=== PATIENT | female | born 1960 | race Two or more races ===

== ENCOUNTER 2017-01-28 10:42 | Emergency (ER) | payer OTHER ==
[2017-01-28 10:54] VITALS: BP 138/94; PULSE 60; TEMP 97.6; BMI 24.9
--- NOTE | 2017-01-28 11:00 | PDOC ---
History of Present Illness - General Chief Complaint: Pain Stated Complaint: Weakness, abd pain Past History - Past Medical History Allergies/Adverse Reactions: Allergies Allergy/AdvReac Type Severity Reaction Status Date / Time No Known Drug Allergies Allergy Verified 01/28/17 10:54 Home Medications: Ambulatory Orders Clonazepam [Klonopin] 1 mg PO BID 02/25/12 Zolpidem Tartrate [Ambien] 10 mg PO HS 02/25/12 Albuterol Sulfate Inhaler - [Ventolin HFA Inhaler -] 1 - 2 inh PO QID PRN Dicyclomine HCl 20 mg PO QID 04/09/14 Meclizine HCl [Antivert -] 12.5 mg PO BID 04/09/14 Montelukast Na [Singulair -] 10 mg PO HS 04/09/14 Pantoprazole Sodium [Protonix] 40 mg PO DAILY 04/09/14 Tiotropium [place] [Spiriva] 1 inh PO DAILY 04/09/14 Oxycodone HCl/Acetaminophen [Percocet 10-325 mg Tablet] 1 tab PO Q4H PRN #0 tablet 05/30/14 Famotidine [Pepcid] 20 mg PO BID #14 tablet 07/21/15 Simethicone 80 mg PO Q8H #12 tab.chew 07/21/15 Naproxen Sodium 550 mg PO BID #20 tablet 04/12/16 Anemia: No Asthma: Yes (NO RECENT ATTACK) Cancer: No Cardiac Disorders: Yes (HEART MURMUR) CVA: No COPD: Yes CHF: No Dementia: No Diabetes: No GI Disorders: Yes (gerd,gastroduodenitis,gastritis,indiigestion,diaphragmatic hernia) Disorders: No HTN: No Hypercholesterolemia: No Liver Disease: No Seizures: No Thyroid Disease: No - Surgical History Abdominal Surgery: No Appendectomy: No Cardiac Surgery: No Cholecystectomy: No Lung Surgery: No Neurologic Surgery: No Orthopedic Surgery: Yes (ROTATOR CUFF,R SHOULDER SUREGRY) - Psycho/Social/Smoking Cessation Hx Anxiety: Yes Suicidal Ideation: No Smoking Status: Yes Smoking History: Former smoker Have you smoked in the past 12 months: No Number of Cigarettes Smoked Daily: 0 If you are a former smoker, when did you quit?: 2013 Information on smoking cessation initiated: No 'Breaking Loose' booklet given: 05/24/14 Hx Alcohol Use: No Drug/Substance Use Hx: No Substance Use Type: None Hx Substance Use Treatment: No *Physical Exam - Vital Signs Last Vital Signs Temp Pulse Resp BP Pulse Ox 97.6 F 60 18 138/94 97 01/28/17 10:50 01/28/17 10:50 01/28/17 10:50 01/28/17 10:50 01/28/17 10:50 *DC/Admit/Observation/Transfer - Attestations Physician Attestion: 01/28/17 10:59 I, Dr. Emir Booker, attest that this document has been prepared under my direction and personally reviewed by me in its entirety. I further attest, that it accurately reflects all work, treatment, procedures and medical decision -making performed by me.
[2017-01-28] MEDS ORDERED: SODIUM CHLORIDE 1,000 ML IV STA (12:03)
[2017-01-28] MEDS ORDERED: ONDANSETRON 4 MG/2 ML VIAL IVPUSH ONE (12:03)
[2017-01-28] MEDS ORDERED: PANTOPRAZOLE SODIUM 40 MG in SODIUM CHLORIDE 100 ML IVPB ONE (12:03)
[2017-01-28] MEDS ORDERED: KETOROLAC TROMETHAMINE 30 MG/1 ML VIAL IVPUSH ONE (12:04)
[2017-01-28] MEDS ORDERED: KETOROLAC TROMETHAMINE 30 MG/1 ML VIAL ONE (12:13)
[2017-01-28] MEDS ORDERED: ONDANSETRON 4 MG/2 ML VIAL ONE (12:13)
[2017-01-28] MEDS ORDERED: PANTOPRAZOLE SODIUM 40 MG VIAL ONE (12:14)
[2017-01-28 12:22] LABS: BASOPHIL 0.7 % (0-2.0); EOSINOPHIL 0.5 % (0-4.5); MCH 31.9 pg (25.7-33.7); MCHC 33.5 g/dl (32.0-36.0); MEAN CELL VOLUME 95.3 fl (80-96); MEAN PLT VOLUME 7.8 fl (7.5-11.1); PLATELET COUNT 296 K/MM3 (134-434); RDW 13.2 % (11.6-15.6)
--- NOTE | 2017-01-28 12:31 | PDOC ---
History of Present Illness - General Chief Complaint: Pain Stated Complaint: Weakness, abd pain Time Seen by Provider: 01/28/17 10:59 History Source: Patient Exam Limitations: No Limitations - History of Present Illness Initial Comments: 01/28/17 12:26 56-year-old female presents to the ED with complaints of epigastric burning, nausea, vomiting since yesterday. Patient states was seen by a nearby hospital and was told she had diverticulitis and gastritis and was given antibiotics including Pepcid. Patient denies fever, diarrhea today although she had 1 episode yesterday and a few daily for the past week. Pt denies drug or alcohol use. Timing/Duration: reports: constant Quality: reports: moderate, burning, cramping Abdominal Pain Onset Location: reports: epigastric Pain Radiation: reports: periumbilical Activities at Onset: reports: none Aggravating Factors: improves with: None Alleviating Factors: improves with: None Past History - Past Medical History Allergies/Adverse Reactions: Allergies Allergy/AdvReac Type Severity Reaction Status Date / Time No Known Drug Allergies Allergy Verified 01/28/17 10:54 Home Medications: Ambulatory Orders Clonazepam [Klonopin] 1 mg PO BID 02/25/12 Zolpidem Tartrate [Ambien] 10 mg PO HS 02/25/12 Albuterol Sulfate Inhaler - [Ventolin HFA Inhaler -] 1 - 2 inh PO QID PRN Dicyclomine HCl 20 mg PO QID 04/09/14 Meclizine HCl [Antivert -] 12.5 mg PO BID 04/09/14 Montelukast Na [Singulair -] 10 mg PO HS 04/09/14 Pantoprazole Sodium [Protonix] 40 mg PO DAILY 04/09/14 Tiotropium [place] [Spiriva] 1 inh PO DAILY 04/09/14 Oxycodone HCl/Acetaminophen [Percocet 10-325 mg Tablet] 1 tab PO Q4H PRN #0 tablet 05/30/14 Famotidine [Pepcid] 20 mg PO BID #14 tablet 07/21/15 Simethicone 80 mg PO Q8H #12 tab.chew 07/21/15 Naproxen Sodium 550 mg PO BID #20 tablet 04/12/16 Anemia: No Asthma: Yes (NO RECENT ATTACK) Cancer: No Cardiac Disorders: Yes (HEART MURMUR) CVA: No COPD: Yes CHF: No Dementia: No Diabetes: No GI Disorders: Yes (gerd,gastroduodenitis,gastritis,indiigestion,diaphragmatic hernia) Disorders: No HTN: No Hypercholesterolemia: No Liver Disease: No Seizures: No Thyroid Disease: No - Surgical History Abdominal Surgery: No Appendectomy: No Cardiac Surgery: No Cholecystectomy: No Lung Surgery: No Neurologic Surgery: No Orthopedic Surgery: Yes (ROTATOR CUFF,R SHOULDER SUREGRY) - Psycho/Social/Smoking Cessation Hx Anxiety: Yes Suicidal Ideation: No Smoking Status: Yes Smoking History: Former smoker Have you smoked in the past 12 months: No Number of Cigarettes Smoked Daily: 0 If you are a former smoker, when did you quit?: 2012 Information on smoking cessation initiated: No 'Breaking Loose' booklet given: 05/24/14 Hx Alcohol Use: No Drug/Substance Use Hx: No Substance Use Type: None Hx Substance Use Treatment: No Patient Lives Alone: No Abd/GI Specific PMHX - Complaint Specific PMHX Diverticulitis: Yes GERD: Yes Review of Systems - Review of Systems Able to Perform ROS?: Yes Constitutional: No: Symptoms Reported HEENTM: No: Symptoms Reported Respiratory: No: Symptoms reported Cardiac (ROS): No: Symptoms Reported ABD/GI: Yes: Nausea, Vomiting, Indigestion, Abdominal cramping : No: Symptoms Reported Musculoskeletal: No: Symptoms Reported Integumentary: No: Symptoms Reported Neurological: No: Symptoms reported Endocrine: No: Symptoms Reported Hematologic/Lymphatic: No: Symptoms Reported *Physical Exam - Vital Signs Last Vital Signs Temp Pulse Resp BP Pulse Ox 97.6 F 60 18 138/94 97 01/28/17 10:50 01/28/17 10:50 01/28/17 10:50 01/28/17 10:50 01/28/17 10:50 - Physical Exam General Appearance: Yes: Nourished, Appropriately Dressed. No: Apparent Distress HEENT: negative: Pale Conjunctivae Respiratory/Chest: positive: Lungs Clear, Normal Breath Sounds. negative: Respiratory Distress, Accessory Muscle Use Cardiovascular: positive: Regular Rhythm, Regular Rate. negative: Murmur Gastrointestinal/Abdominal: positive: Soft, Tenderness (epigastric/ upper periumbilical with mild left lower quadrant tenderness on exam) Musculoskeletal: negative: CVA Tenderness Extremity: positive: Normal Capillary Refill. negative: Pedal Edema Integumentary: positive: Normal Color, Warm, Moist Neurologic: positive: Motor Strength 5/5 (ambulatory). negative: Normal Mood/ Affect (anxious) ED Treatment Course - LABORATORY CBC & Chemistry Diagram: 01/28/17 12:06 01/28/17 12:06 - Medications Given in the ED: ED Medications Discontinued Medications Generic Name Dose Route Start Last Admin Trade Name Guidoq PRN Reason Stop Dose Admin Ketorolac Tromethamine 30 mg 01/28/17 12:04 01/28/17 12:20 Toradol Injection - IVPUSH 01/28/17 12:05 30 mg ONCE ONE Administration Ondansetron HCl 4 mg 01/28/17 12:03 01/28/17 12:20 Zofran Injection IVPUSH 01/28/17 12:04 4 mg ONCE ONE Administration Medical Decision Making - Medical Decision Making 01/28/17 12:33 Patient with recent diagnosis of diverticulitis and gastritis. Patient with history of GERD but does not take medication and was given Pepcid along with Cipro and Flagyl upon discharge 2 days ago but states medication is not helping her epigastric pain. Patient does state diarrhea has decreased and denies fever presently. Patient ordered for labs, antiemetics, IV fluids and pain control. 01/28/17 14:41 Laboratory Tests 01/28/17 01/28/17 12:06 12:06 WBC 12.0 H Hgb 13.5 Hct 40.3 Plt Count 296 Monocytes % 6.0 Sodium 143 Potassium 4.1 Chloride 107 Carbon Dioxide 27 Anion Gap 9 BUN 9 D Creatinine 0.9 D Creat Clearance w eGFR > 60 Random Glucose 82 Calcium 8.6 Magnesium 1.9 Total Bilirubin 1.2 H AST 77 H D Albumin 3.8 Patient states feeling much better and tolerated a lunch tray. Patient will be discharged home with Protonix and told not to take the Pepcid Motrin or Percocet that was prescribed for her knee and acid reflux. Patient is to continue her Cipro and Flagyl and follow-up with Dr. Funes *DC/Admit/Observation/Transfer Diagnosis at time of Disposition: Gastritis Qualifiers: Gastritis type: unspecified gastritis Chronicity: acute Gastritis bleeding: without bleeding Qualified Code(s): K29.00 - Acute gastritis without bleeding Gastroesophageal reflux disease Qualifiers: Esophagitis presence: without esophagitis Qualified Code(s): K21.9 - Gastro- esophageal reflux disease without esophagitis - Discharge Dispostion Disposition: HOME Condition at time of disposition: Improved - Referrals Referrals: Emir Funes MD [Staff Physician] - - Patient Instructions Printed Discharge Instructions: DI for Gastroesophageal Reflux Disease (GERD) Additional Instructions: Please take Protonix as prescribed starting tomorrow. Please continue Flagyl and Cipro as prescribed. Please follow up with your hydro mechanic Dr. Funes and return to ED if symptoms worsen
[2017-01-28 13:00] LABS: ALBUMIN 3.8 g/dl (3.4-5.0); ANION GAP 9 (8-16); CALCIUM 8.6 mg/dL (8.5-10.1); CO2 27 mmol/L (21-32); GLUCOSE,RANDOM 82 mg/dL (74-106)
[2017-01-28 13:04] LABS: ALK PHOS 96 U/L (45-117); BILIRUBIN,TOTAL 1.2 mg/dL (0.2-1.0); CREATININE 0.9 mg/dL (0.55-1.02); SGPT/ALT 54 U/L (12-78); TOT PROT 7.4 g/dl (6.4-8.2)
[2017-01-28 13:06] LABS: MAGNESIUM 1.9 mg/dL (1.8-2.4); SGOT/AST 77 U/L (15-37)
== END 2017-01-28 14:51 | disposition home or self-care (01) ==
LOC: JER 10:42
PROC: 3E033GC Introduction of Other Therapeutic Substance into Peripheral Vein, Percutaneous Approach (ICD-10-PCS; principal; 2017-01-28)
PROC: 3E0333Z Introduction of Anti-inflammatory into Peripheral Vein, Percutaneous Approach (ICD-10-PCS; 2017-01-28)
PROC: 3E033GC Introduction of Other Therapeutic Substance into Peripheral Vein, Percutaneous Approach (ICD-10-PCS; 2017-01-28)
DX: K29.60 Other gastritis without bleeding (principal); K21.9 Gastro-esophageal reflux disease without esophagitis; J45.909 Unspecified asthma, uncomplicated; J44.9 Chronic obstructive pulmonary disease, unspecified; R01.1 Cardiac murmur, unspecified
CPT/HCPCS: 36415; 80053; 83735; 85025; 99282-25

== ENCOUNTER 2017-04-20 08:29 | Day surgery (SDC) | payer OTHER ==
[2017-04-20 09:15] VITALS: BMI 24.0
[2017-04-20] MEDS ORDERED: LIDOCAINE HCL/PF 2% SDV 5ML VIAL ONE (09:19)
[2017-04-20] MEDS ORDERED: PROPOFOL 20 ML ONE (09:19)
[2017-04-20 10:07] VITALS: TEMP 97.5
[2017-04-20 11:34] VITALS: BP 136/76; PULSE 68
--- NOTE | 2017-04-21 16:20 | PATH ---
Surgical Pathology Report Patient Name: MARTHA LOREDO [facility]. Rec. #: [id number] /Age/Gender: 1960 (Age: 56) / F Account: [id number] Location: U-ENDOSCOPY Taken: 04/20/2017 Received: 04/20/2017 Reported: 04/21/2017 Physicians: Emir Funes M.D. Specimen(s) Received A: BX GASTRIC B: BX ESOPHAGUS Clinical History Abdominal pain Hiatal hernia, gastritis Final Diagnosis A. STOMACH, BIOPSY: GASTRIC FUNDIC MUCOSA WITH NO PATHOLOGIC CHANGES. IMMUNOSTAIN FOR H. PYLORI IS NEGATIVE. B. ESOPHAGUS, BIOPSY: SQUAMOUS EPITHELIUM WITH PAPILLOMATOSIS SUGGESTIVE OF REFLUX ESOPHAGITIS. NO INTESTINAL METAPLASIA IDENTIFIED (NO ALVES'S IDENTIFIED). NO EOSINOPHILIC ESOPHAGITIS IDENTIFIED. Electronically Signed Johnie Bhatt M.D. Gross Description A. Received in formalin, labeled "gastric biopsy" are 2 mejias, irregular portions of soft tissue measuring 0.2 and 0.5 cm. in greatest dimension. The specimens are submitted in toto in one cassette. B. Received in formalin, labeled "biopsy esophagus" is a mejias, irregular portion of soft tissue measuring 0.3 cm. in greatest dimension. The specimen is submitted in toto in one cassette. 04/20/201704/20/2017
== END 2017-04-20 11:20 | disposition home or self-care (01) ==
LOC: JASU-ENDO 08:29
PROVIDERS: ATTEND Internal Medicine Gastroenterology
PROC: 0DB68ZX Excision of Stomach, Via Natural or Artificial Opening Endoscopic, Diagnostic (ICD-10-PCS; 2017-04-20)
PROC: 0DB58ZX Excision of Esophagus, Via Natural or Artificial Opening Endoscopic, Diagnostic (ICD-10-PCS; principal; 2017-04-20 09:25)
DX: K29.60 Other gastritis without bleeding (principal); K44.9 Diaphragmatic hernia without obstruction or gangrene
CPT/HCPCS: 88305-TC; 88342-TC

== ENCOUNTER 2017-11-02 22:34 | Emergency (ER) | payer OTHER ==
[2017-11-02 22:48] VITALS: BP 122/84; PULSE 94; BMI 23.0
[2017-11-02 22:50] VITALS: TEMP 97.7
--- NOTE | 2017-11-02 22:50 | PDOC ---
History of Present Illness - General History Source: Patient Exam Limitations: No Limitations - History of Present Illness Initial Comments: 11/03/17 00:17 Patient is a 57 year old female with a significant past medical history of asthma, acid reflux, Heart Murmur, COPD, gerd,gastroduodenitis,gastritis, indigestion,diaphragmatic hernia, Anxiety, Esophagitis, Cervical and Lumbar Radiculopathy, who presents to the ED with complaints of SOB that began 4 days ago. Patient reports experiencing SOB while at home suddenly, showing no signs of subsiding. She reports experiencing chronic cough since October 30 and chest pain secondary to cough. Patient states she was in last in the hospital 4 months ago and was diagnosed with diverticulosis. Denies nausea, vomiting. Denies fevers, chills. Denies contact with sick individuals, out of state travel. Denies any other symptoms. Allergies: None Social history: Former smoker (Last 4 years ago, started at 18). No alcohol. No illicit drugs. Surgical history: Gallbladder removal. C Section. PMD: Dr. Brenda Cuello <Adalid Gaspar - Last Filed: 11/03/17 00:17> <Delmy Mac - Last Filed: 11/03/17 01:24> - General Chief Complaint: Respiratory Stated Complaint: SOB Time Seen by Provider: 11/02/17 22:43 Past History <Adalid Gaspar - Last Filed: 11/03/17 00:17> - Past Medical History Anemia: No Asthma: Yes (NO RECENT ATTACK) Cancer: No Cardiac Disorders: Yes (HEART MURMUR) CVA: No COPD: Yes CHF: No Dementia: No Diabetes: No GI Disorders: Yes (gerd,gastroduodenitis,gastritis,indiigestion,diaphragmatic hernia) Disorders: No HTN: No Hypercholesterolemia: No Liver Disease: No Seizures: No Thyroid Disease: No - Surgical History Abdominal Surgery: No Appendectomy: No Cardiac Surgery: No Cholecystectomy: No Lung Surgery: No Neurologic Surgery: No Orthopedic Surgery: Yes (ROTATOR CUFF,R SHOULDER SUREGRY) - Suicide/Smoking/Psychosocial Hx Smoking Status: Yes Smoking History: Never smoked Have you smoked in the past 12 months: No Number of Cigarettes Smoked Daily: 0 If you are a former smoker, when did you quit?: 2013 Information on smoking cessation initiated: No 'Breaking Loose' booklet given: 05/24/14 Hx Alcohol Use: No Drug/Substance Use Hx: No Substance Use Type: None Hx Substance Use Treatment: No <BubbaDelmy - Last Filed: 11/03/17 01:24> - Past Medical History Allergies/Adverse Reactions: Allergies Allergy/AdvReac Type Severity Reaction Status Date / Time No Known Drug Allergies Allergy Verified 11/02/17 22:43 Home Medications: Ambulatory Orders Clonazepam [Klonopin] 1 mg PO BID 02/25/12 Albuterol Sulfate Inhaler - [Ventolin HFA Inhaler -] 1 - 2 inh PO QID PRN Montelukast Na [Singulair -] 10 mg PO HS 04/09/14 Tiotropium [place] [Spiriva] 1 inh PO DAILY 04/09/14 Oxycodone HCl/Acetaminophen [Percocet 10-325 mg Tablet] 1 tab PO Q4H PRN #0 tablet 05/30/14 Butalbital/Acetaminophen [Butalbital-Acetaminophn 50-325] 1 each PO DAILY Cyclobenzaprine HCl [Flexeril 10 mg] 10 mg PO BID PRN 04/20/17 Diclofenac Sodium 75 mg PO DAILY 04/20/17 Escitalopram Oxalate [Lexapro -] 20 mg PO DAILY 04/20/17 Ibuprofen 800 mg PO DAILY PRN 04/20/17 Review of Systems - Review of Systems Able to Perform ROS?: Yes Comments:: 11/03/17 00:17 CONSTITUTIONAL: Absent: fever, chills, diaphoresis, generalized weakness, malaise, loss of appetite HEENT: Absent: rhinorrhea, nasal congestion, throat pain, throat swelling, difficulty swallowing, mouth swelling, ear pain, eye pain, visual Changes CARDIOVASCULAR: Absent: chest pain, syncope, palpitations, irregular heart rate, lightheadedness , peripheral edema RESPIRATORY: Absent: cough, shortness of breath, dyspnea with exertion, orthopnea, wheezing, stridor, hemoptysis GASTROINTESTINAL: Absent: abdominal pain, abdominal distension, nausea, vomiting, diarrhea, constipation, melena, hematochezia GENITOURINARY: Absent: dysuria, frequency, urgency, hesitancy, hematuria, flank pain, genital pain MUSCULOSKELETAL: Absent: myalgia, arthralgia, joint swelling SKIN: Absent: rash, itching, pallor HEMATOLOGIC/IMMUNOLOGIC: Absent: easy bleeding, easy bruising, lymphadenopathy, frequent infections ENDOCRINE: Absent: unexplained weight gain, unexplained weight loss, heat intolerance, cold intolerance NEUROLOGIC: Absent: headache, focal weakness or paresthesias, dizziness, unsteady gait, seizure, mental status changes, bladder or bowel incontinence PSYCHIATRIC: Absent: anxiety, depression, suicidal or homicidal ideation, hallucinations. All Other Systems: Reviewed and Negative <Adalid Gaspar - Last Filed: 11/03/17 00:17> *Physical Exam - Vital Signs Last Vital Signs Temp Pulse Resp BP Pulse Ox 97.7 F 94 H 16 122/84 95 11/02/17 22:49 11/02/17 22:44 11/02/17 22:44 11/02/17 22:44 11/02/17 22:44 - Physical Exam Comments: 11/03/17 00:17 GENERAL: +currently hyperventilating in ED. Well developed, well nourished. Awake and alert. No acute distress. HEENT: Normocephalic, atraumatic. PERRLA, EOMI. No conjunctival pallor. Sclera are non- icteric. Moist mucous membranes. Oropharynx is clear. NECK: Supple. Full ROM. No JVD. Carotid pulses 2+ and symmetric, without bruits. No thyromegaly. No lymphadenopathy. CARDIOVASCULAR: Regular rate and rhythm. No murmurs, rubs, or gallops. Distal pulses are 2+ and symmetric. PULMONARY: +Coasre wheezing bilaterally. No evidence of respiratory distress. Lungs clear to auscultation bilaterally. No wheezing, rales or rhonchi. ABDOMINAL: Soft. Non-tender. Non-distended. No rebound or guarding. No organomegaly. Normoactive bowel sounds. MUSCULOSKELETAL: Normal range of motion at all joints. No bony deformities or tenderness. No CVA tenderness. EXTREMITIES: +Fibromyalgia right knee. +Left arm muscular tear. No cyanosis. No clubbing. No edema. No calf tenderness. SKIN: Warm and dry. Normal capillary refill. No rashes. No jaundice. NEUROLOGICAL: Alert, awake, appropriate. Cranial nerves 2-12 intact. No deficits to light touch and temperature in face, upper extremities and lower extremities. No motor deficits in the in face, upper extremities and lower extremities. Normoreflexic in the upper and lower extremities. Normal speech. Toes are down-going bilaterally. PSYCHIATRIC: Cooperative. Good eye contact. Appropriate mood and affect. <HubertAdalid - Last Filed: 11/03/17 00:17> - Vital Signs Last Vital Signs Temp Pulse Resp BP Pulse Ox 97.7 F 94 H 16 122/84 95 11/02/17 22:49 11/02/17 22:44 11/02/17 22:44 11/02/17 22:44 11/02/17 22:44 <Delmy Mac - Last Filed: 11/03/17 01:24> ED Treatment Course - LABORATORY CBC & Chemistry Diagram: 11/02/17 23:55 11/02/17 23:55 - Medications Given in the ED: ED Medications Discontinued Medications Generic Name Dose Route Start Last Admin Trade Name Freq PRN Reason Stop Dose Admin Albuterol/Ipratropium 1 amp 11/02/17 22:55 11/02/17 23:57 Duoneb - NEB 11/02/17 22:56 1 amp ONCE ONE Administration Prednisone 60 mg 11/02/17 22:52 11/02/17 23:57 Deltasone - PO 11/02/17 22:53 60 mg ONCE ONE Administration <Adalid Gaspar - Last Filed: 11/03/17 00:17> - LABORATORY CBC & Chemistry Diagram: 11/02/17 23:55 11/02/17 23:55 <Delmy Mac - Last Filed: 11/03/17 01:24> Medical Decision Making - Medical Decision Making 11/03/17 01:13 57-year-old female with a history of asthma presents with a complaint of coughing since October 30. She is afebrile, pulse ox is 95% on room air, she has some coarse scattered wheezing She is not in any respiratory distress. Impression mild asthma exacerbation. Chest x-ray didn't show Small right lower lobe. Infiltrate versus atelectasis and the patient will be given macrolides for this. EKG showed sinus tach at 101 and her QTC is 448. There is no QT prolongation -labs reviewed and found mild hypokalemia, which was supplemented, rest of patient's labs are noncontributory IMP asthma exacerbation RX steroids/MDI <Delmy Mac - Last Filed: 11/03/17 01:24> *DC/Admit/Observation/Transfer - Attestations Scribe Attestion: 11/03/17 00:17 Documentation prepared by Adalid Gaspar, acting as medical physicist for Delmy Mac MD/DO. <Adalid Gaspar - Last Filed: 11/03/17 00:17> <Delmy Mac - Last Filed: 11/03/17 01:24> Diagnosis at time of Disposition: Asthma exacerbation Qualifiers: Asthma severity: mild Asthma persistence: unspecified Qualified Code(s): J45.901 - Unspecified asthma with (acute) exacerbation - Discharge Dispostion Disposition: HOME Condition at time of disposition: Stable - Referrals Referrals: Brenda Cuello MD [Primary Care Provider] - - Patient Instructions Printed Discharge Instructions: DI for Acute Bronchitis, DI for Asthma -- Adult Additional Instructions: please pick and shovel man your medications at your pharmacy and take them as directed followup with our primary doctor
[2017-11-02] MEDS ORDERED: predniSONE 20 MG TABLET (UD) PO ONE (22:52)
[2017-11-02] MEDS ORDERED: ALBUTEROL SO4 2.5/IPRATROPIUM 0.5 INH SOL 3 ML VIAL.NEB. NEB ONE ×2 (22:55→23:39)
[2017-11-02] MEDS ORDERED: predniSONE 20 MG TABLET (UD) ONE (23:38)
[2017-11-03 00:16] LABS: BASO % 0.9 % (0-2.0); EOS % 2.6 % (0-4.5); HEMATOCRIT 36.6 % (32.4-45.2); HEMOGLOBIN 12.2 GM/dL (10.7-15.3); LYMPH % 26.2 % (8-40); MCHC 33.3 g/dl (32.0-36.0); MEAN CELL VOLUME 93.2 fl (80-96); MEAN PLT VOLUME 7.6 fl (7.5-11.1); MONO % 11.4 % (3.8-10.2); NEUT % 58.9 % (42.8-82.8); PLATELET COUNT 305 K/MM3 (134-434); RBC 3.93 M/mm3 (3.60-5.2); RDW 14.2 % (11.6-15.6); WHITE BLOOD COUNT 6.2 K/mm3 (4.0-10.0)
[2017-11-03 00:49] LABS: ALBUMIN 3.6 g/dl (3.4-5.0); ALK PHOS 111 U/L (45-117); ANION GAP 8 (8-16); BILIRUBIN,TOTAL 0.5 mg/dL (0.2-1.0); BLOOD UREA NITROGEN 16 mg/dL (7-18); CALCIUM 8.7 mg/dL (8.5-10.1); CHLORIDE 101 mmol/L (98-107); CO2 29 mmol/L (21-32); CREATININE 0.7 mg/dL (0.55-1.02); GLUCOSE,RANDOM 84 mg/dL (74-106); POTASSIUM 3.7 mmol/L (3.5-5.1); SGOT/AST 20 U/L (15-37); SGPT/ALT 18 U/L (12-78); SODIUM 138 mmol/L (136-145); TOT PROT 7.4 g/dl (6.4-8.2)
[2017-11-03] MEDS ORDERED: AZITHROMYCIN 250 MG TABLET PO STA (01:12)
[2017-11-03] MEDS ORDERED: guaiFENesin 200 MG/10 ML 10 ML UNIT-DOSE CUPS PO ONE (01:20)
[2017-11-03] MEDS ORDERED: guaiFENesin/CODEINE 10 ML UNIT-DOSE CUPS PO ONE (01:21)
[2017-11-03] MEDS ORDERED: ALBUTEROL SO4 2.5/IPRATROPIUM 0.5 INH SOL 3 ML VIAL.NEB. NEB ONE ×2 (01:22→01:28)
[2017-11-03] MEDS ORDERED: guaiFENesin/CODEINE 5 ML UNIT-DOSE CUPS PO ONE (01:28)
[2017-11-03] MEDS ORDERED: AZITHROMYCIN 250 MG TABLET ONE (01:28)
--- NOTE | 2017-11-03 13:18 | EKG ---
Test Reason : Blood Pressure : / mmHG Vent. Rate : 101 BPM Atrial Rate : 101 BPM P-R Int : 140 ms QRS Dur : 076 ms QT Int : 346 ms P-R-T Axes : 023 055 039 degrees QTc Int : 448 ms SINUS TACHYCARDIA OTHERWISE NORMAL ECG WHEN COMPARED WITH ECG OF 09-APR-2014 11:37, VENT. RATE HAS INCREASED BY 35 BPM QT HAS LENGTHENED Confirmed by LENNY HAMILTON MD ([id number]) on 11/03/2017 1:18:02 PM Referred By: Confirmed By:LENNY HAMILTON MD
== END 2017-11-03 02:05 | disposition home or self-care (01) ==
LOC: JER 22:34
PROC: 3E0F7GC Introduction of Other Therapeutic Substance into Respiratory Tract, Via Natural or Artificial Opening (ICD-10-PCS; principal; 2017-11-02)
DX: J45.901 Unspecified asthma with (acute) exacerbation (principal); R01.1 Cardiac murmur, unspecified; K21.9 Gastro-esophageal reflux disease without esophagitis; F41.9 Anxiety disorder, unspecified
CPT/HCPCS: 36415; 71045-TC; 80053; 82550; 84484; 85025; 93005; 93010; 94640; 99281-25; 99282-25

== ENCOUNTER 2018-05-13 09:39 | Emergency (ER) | payer OTHER ==
--- NOTE | 2018-05-13 09:50 | PDOC ---
History of Present Illness - General History Source: Patient Exam Limitations: No Limitations - History of Present Illness Initial Comments: 05/13/18 10:41 The patient is a 57 year old female with a significant PMH of asthma, acid reflux, heart murmur, COPD, GERD, gastroduodenitis, gastritis, indigestion, diaphragmatic hernia, anxiety, esophagitis, and cervical & lumbar radiculopathy who presents to the emergency department with epigastric pain for 3 days. The patient describes her epigastric pain as waxing and waning,sharp,crampy and a 10 /10 in severity. The patient reports that she has been experiencing associated diarrhea with her epigastric pain. The patient reports that her epigastric pain began wednesday night after she drank two sips of cold water when she was out. The patient states that she has never experienced pain of this severity in the past. The patient reports that she has had about 4 episodes of diarrhea today. She also reports an episode of a headache this morning by which she took medication for. The patient denies taking any pain relief medication for her epigastric pain. The patient denies any fever, chills, nausea, vomit, constipation or urinary symptoms. She denies any chest pain, shortness of breath , and dizziness. The patient denies any other complaints <Mary Tian - Last Filed: 05/13/18 10:40> <Karina Saleem - Last Filed: 05/13/18 18:11> - General Chief Complaint: Pain Stated Complaint: ABD PAIN Time Seen by Provider: 05/13/18 09:46 Past History <Mary Tian - Last Filed: 05/13/18 10:40> - Past Medical History Anemia: No Asthma: Yes (NO RECENT ATTACK) Cancer: No Cardiac Disorders: Yes (HEART MURMUR) CVA: No COPD: Yes CHF: No Dementia: No Diabetes: No GI Disorders: Yes (gerd,gastroduodenitis,gastritis,indiigestion,diaphragmatic hernia) Disorders: No HTN: No Hypercholesterolemia: No Liver Disease: No Psychiatric Problems: Yes (Anxiety) Seizures: No Thyroid Disease: No - Surgical History Abdominal Surgery: No Appendectomy: No Cardiac Surgery: No Cholecystectomy: No Lung Surgery: No Neurologic Surgery: No Orthopedic Surgery: Yes (ROTATOR CUFF,R SHOULDER SUREGRY) - Suicide/Smoking/Psychosocial Hx Smoking Status: Yes Smoking History: Never smoked Have you smoked in the past 12 months: No Number of Cigarettes Smoked Daily: 0 If you are a former smoker, when did you quit?: 2012 'Breaking Loose' booklet given: 05/24/14 Hx Alcohol Use: No Drug/Substance Use Hx: No Substance Use Type: None Hx Substance Use Treatment: No <StivenAnna MarieKarina - Last Filed: 05/13/18 18:11> - Past Medical History Allergies/Adverse Reactions: Allergies Allergy/AdvReac Type Severity Reaction Status Date / Time No Known Drug Allergies Allergy Verified 11/02/17 22:43 Home Medications: Ambulatory Orders Clonazepam [Klonopin] 1 mg PO BID 02/25/12 Albuterol Sulfate Inhaler - [Ventolin HFA Inhaler -] 1 - 2 inh PO QID PRN Tiotropium [place] [Spiriva] 1 inh PO DAILY 04/09/14 Diclofenac Sodium 75 mg PO DAILY 04/20/17 Fluticasone Furoate [Arnuity Ellipta] 50 mcg IH PRN 05/13/18 Fluticasone/Salmeterol [Advair Hfa 115-21 Mcg Inhaler] 1 inh PO BID 05/13/18 Gabapentin [Neurontin -] 300 mg PO Q8H 05/13/18 Linaclotide [Linzess] 145 mcg PO DAILY 05/13/18 Ranitidine [Zantac -] 150 mg PO BID 05/13/18 Review of Systems - Review of Systems Able to Perform ROS?: Yes Comments:: 05/13/18 10:41 GENERAL/CONSTITUTIONAL: No fever or chills. No weakness. HEAD, EYES, EARS, NOSE AND THROAT: No change in vision. No ear pain or discharge. No sore throat. CARDIOVASCULAR: No chest pain or shortness of breath. RESPIRATORY: No cough, wheezing, or hemoptysis. GASTROINTESTINAL: (+)epigastric pain, diarrhea. No nausea, vomiting, constipation. GENITOURINARY: No dysuria, frequency, or change in urination. MUSCULOSKELETAL: No joint or muscle swelling or pain. No neck or back pain. SKIN: No rash NEUROLOGIC: (+)headache. No vertigo, loss of consciousness, or change in strength/sensation. ENDOCRINE: No increased thirst. No abnormal weight change. HEMATOLOGIC/LYMPHATIC: No anemia, easy bleeding, or history of blood clots. ALLERGIC/IMMUNOLOGIC: No hives or skin allergy. <Mary Tian - Last Filed: 05/13/18 10:40> *Physical Exam - Vital Signs Last Vital Signs Temp Pulse Resp BP Pulse Ox 98.0 F 80 16 131/111 100 05/13/18 10:05 05/13/18 10:34 05/13/18 10:05 05/13/18 10:05 05/13/18 10:34 <Mary Tian - Last Filed: 05/13/18 10:40> - Physical Exam Comments: GENERAL: Awake, alert, and fully oriented. Tearful, anxious. HEAD: No signs of trauma EYES: PERRLA, EOMI, sclera anicteric, conjunctiva clear ENT: Auricles normal inspection, hearing grossly normal, nares patent, oropharynx clear without exudates. Dry mucosa NECK: Normal ROM, supple, no lymphadenopathy, JVD, or masses LUNGS: Breath sounds equal, clear to auscultation bilaterally. No wheezes, and no crackles HEART: Regular rate and rhythm, normal S1 and S2, no murmurs, rubs or gallops ABDOMEN: Soft, +epigastric and LLQ tenderness, normoactive bowel sounds. + Guarding, no rebound. No masses EXTREMITIES: Normal range of motion, no edema. No clubbing or cyanosis. No cords, erythema, or tenderness NEUROLOGICAL: Cranial nerves II through XII grossly intact. Normal speech, normal gait SKIN: Warm, Dry, normal turgor, no rashes or lesions noted. <Karina Saleem - Last Filed: 05/13/18 18:11> ED Treatment Course - Medications Given in the ED: ED Medications Discontinued Medications Generic Name Dose Route Start Last Admin Trade Name Freq PRN Reason Stop Dose Admin Morphine Sulfate 4 mg 05/13/18 10:31 05/13/18 10:37 Morphine Injection - IVPUSH 05/13/18 10:32 4 mg ONCE ONE Administration <Mary Tian - Last Filed: 05/13/18 10:40> - LABORATORY CBC & Chemistry Diagram: 05/13/18 10:51 05/13/18 10:51 <Karina Saleem - Last Filed: 05/13/18 18:11> Medical Decision Making - Medical Decision Making 05/13/18 10:32 Pt with abd pain and diarrhea x3 days, history of diverticulitis in past. Will obtain labs, plan for CT to r/o acute diverticulitis. She took fioricet for headache this morning, so will avoid tylenol for now. 05/13/18 12:01 Pt reports improvement in symptoms. Awaiting CT to further evaluate. 05/13/18 14:30 CT negative. Patient requesting food, given a PO challenge. 05/13/18 15:03 Reassessed. She states she ate a sandwich then had diarrhea. Will give imodium and reassess. 05/13/18 16:17 Pt reports improvement with imodium. Stable for DC home. <Karina Saleem - Last Filed: 05/13/18 18:11> *DC/Admit/Observation/Transfer - Attestations Scribe Attestion: 05/13/18 10:41 Documentation prepared by Mary Tian, acting as medical research scientist for Karina Saleem MD. <Mary Tian - Last Filed: 05/13/18 10:40> - Discharge Dispostion Decision to Admit order: No <Karina Saleem - Last Filed: 05/13/18 18:11> Diagnosis at time of Disposition: Abdominal pain Qualifiers: Abdominal location: unspecified location Qualified Code(s): R10.9 - Unspecified abdominal pain - Discharge Dispostion Disposition: HOME Condition at time of disposition: Stable - Patient Instructions Printed Discharge Instructions: DI for Diarrhea and Traveler's Diarrhea -- Adult
[2018-05-13] MEDS ORDERED: SODIUM CHLORIDE 1,000 ML IV STA (10:24)
[2018-05-13] MEDS ORDERED: morphine CARPU-JECT 4 MG/1 ML DISP.SYRIN IVPUSH ONE (10:31)
[2018-05-13 10:33] VITALS: BP 131/111; PULSE 80; TEMP 98; BMI 24.0
[2018-05-13] MEDS ORDERED: morphine SULFATE 4 MG/ML VIAL ONE (10:41)
[2018-05-13 10:48] LABS: URINE APPEARANCE CLEAR; URINE BILIRUBIN NEGATIVE (<2.0 mg/dL); URINE COLOR YELLOW; URINE GLUCOSE (UA) NEGATIVE (NEGATIVE); URINE KETONE NEGATIVE (NEGATIVE); URINE LEUK ESTERASE NEGATIVE (NEGATIVE); URINE NITRITE NEGATIVE (NEGATIVE); URINE PROTEIN NEGATIVE (NEGATIVE); URINE UROBILINOGEN NEGATIVE mg/dL (0.2-1.0)
[2018-05-13 11:00] LABS: BASO % 0.4 % (0-2.0); EOS % 0.6 % (0-4.5); HEMATOCRIT 39.6 % (32.4-45.2); HEMOGLOBIN 13.2 GM/dL (10.7-15.3); LYMPH % 17.3 % (8-40); MCH 31.4 pg (25.7-33.7); MCHC 33.3 g/dl (32.0-36.0); MEAN CELL VOLUME 94.1 fl (80-96); MONO % 5.1 % (3.8-10.2); NEUT % 76.6 % (42.8-82.8); PLATELET COUNT 337 K/MM3 (134-434); RBC 4.21 M/mm3 (3.60-5.2); RDW 13.1 % (11.6-15.6); WHITE BLOOD COUNT 10.7 K/mm3 (4.0-10.0)
[2018-05-13 11:24] LABS: ALBUMIN 3.9 g/dl (3.4-5.0); ANION GAP 10 (8-16); BILIRUBIN,TOTAL 0.9 mg/dL (0.2-1.0); BLOOD UREA NITROGEN 12 mg/dL (7-18); CALCIUM 8.8 mg/dL (8.5-10.1); CHLORIDE 110 mmol/L (98-107); CO2 23 mmol/L (21-32); CREATININE 0.7 mg/dL (0.55-1.02); GLUCOSE,RANDOM 84 mg/dL (74-106); LIPASE 165 U/L (73-393); POTASSIUM 3.6 mmol/L (3.5-5.1); SGOT/AST 21 U/L (15-37); SGPT/ALT 27 U/L (12-78); SODIUM 143 mmol/L (136-145); TOT PROT 7.6 g/dl (6.4-8.2)
[2018-05-13 11:25] LABS: ALK PHOS 90 U/L (45-117)
[2018-05-13] MEDS ORDERED: PANTOPRAZOLE SODIUM 40 MG VIAL IVPUSH ONE (14:22)
[2018-05-13] MEDS ORDERED: PANTOPRAZOLE SODIUM 40 MG/100 ML BAG IVPB ONE (14:31)
[2018-05-13] MEDS ORDERED: LOPERAMIDE HCL 2 MG CAPSULE PO ONE (15:03)
== END 2018-05-13 16:26 | disposition home or self-care (01) ==
LOC: JER 09:39
PROC: 3E0337Z Introduction of Electrolytic and Water Balance Substance into Peripheral Vein, Percutaneous Approach (ICD-10-PCS; principal; 2018-05-13)
PROC: 3E033GC Introduction of Other Therapeutic Substance into Peripheral Vein, Percutaneous Approach (ICD-10-PCS; 2018-05-13)
PROC: 3E033NZ Introduction of Analgesics, Hypnotics, Sedatives into Peripheral Vein, Percutaneous Approach (ICD-10-PCS; 2018-05-13)
DX: R10.9 Unspecified abdominal pain (principal); M54.12 Radiculopathy, cervical region; M54.16 Radiculopathy, lumbar region; J44.9 Chronic obstructive pulmonary disease, unspecified; J45.909 Unspecified asthma, uncomplicated; R01.1 Cardiac murmur, unspecified; F41.9 Anxiety disorder, unspecified; Z87.19 Personal history of other diseases of the digestive system
CPT/HCPCS: 36415; 74177-TC; 80053; 81003; 83690; 85025; 96361; 96374; 96375; 99283-25; J7030

== ENCOUNTER 2019-10-25 12:13 | Emergency (ER) | payer OTHER ==
[2019-10-25 12:22] VITALS: BP 117/77; PULSE 66; TEMP 97.9; BMI 24.9
[2019-10-25] MEDS ORDERED: SODIUM CHLORIDE FOR INHALATION 3 ML VIAL.NEB IH ONE (12:39)
--- NOTE | 2019-10-25 13:05 | PDOC ---
History of Present Illness - General Chief Complaint: Cold Symptoms Stated Complaint: BODY ACHES Time Seen by Provider: 10/25/19 12:29 History Source: Patient Exam Limitations: No Limitations Past History - Past Medical History Allergies/Adverse Reactions: Allergies Allergy/AdvReac Type Severity Reaction Status Date / Time No Known Drug Allergies Allergy Verified 10/25/19 12:22 Home Medications: Ambulatory Orders Clonazepam [Klonopin] 1 mg PO BID 02/25/12 Albuterol Sulfate Inhaler - [Ventolin HFA Inhaler -] 1 - 2 inh PO QID PRN Tiotropium [place] [Spiriva] 1 inh PO DAILY 04/09/14 Diclofenac Sodium 75 mg PO DAILY 04/20/17 Fluticasone Furoate [Arnuity Ellipta] 50 mcg IH PRN 05/13/18 Fluticasone/Salmeterol [Advair Hfa 115-21 Mcg Inhaler] 1 inh PO BID 05/13/18 Gabapentin [Neurontin -] 300 mg PO Q8H 05/13/18 Linaclotide [Linzess] 145 mcg PO DAILY 05/13/18 Ranitidine [Zantac -] 150 mg PO BID 05/13/18 Fluticasone Prop 0.05% Nasal [Flonase -] 1 - 2 spray NS BID #1 spray.pump Pseudoephedrine HCl [Sudafed] 60 mg PO Q6H #12 tablet 10/25/19 Anemia: No Asthma: Yes (NO RECENT ATTACK) Cancer: No Cardiac Disorders: Yes (HEART MURMUR) CVA: No COPD: Yes CHF: No Dementia: No Diabetes: No GI Disorders: Yes (gerd,gastroduodenitis,gastritis,indiigestion,diaphragmatic hernia) Disorders: No HTN: No Hypercholesterolemia: No Liver Disease: No Psychiatric Problems: Yes (Anxiety) Seizures: No Thyroid Disease: No - Surgical History Abdominal Surgery: No Appendectomy: No Cardiac Surgery: No Cholecystectomy: No Lung Surgery: No Neurologic Surgery: No Orthopedic Surgery: Yes (ROTATOR CUFF,R SHOULDER SUREGRY) - Immunization History Immunization Up to Date: No - Psycho Social/Smoking Cessation Hx Smoking Status: Yes Smoking History: Never smoked Have you smoked in the past 12 months: No Number of Cigarettes Smoked Daily: 0 If you are a former smoker, when did you quit?: 2013 Information on smoking cessation initiated: No 'Breaking Loose' booklet given: 05/24/14 Hx Alcohol Use: No Drug/Substance Use Hx: No Substance Use Type: None Hx Substance Use Treatment: No *Physical Exam - Vital Signs Last Vital Signs Temp Pulse Resp BP Pulse Ox 97.9 F 66 18 117/77 100 10/25/19 12:20 10/25/19 12:20 10/25/19 12:20 10/25/19 12:20 10/25/19 12:20 - Physical Exam General Appearance: No: Apparent Distress HEENT: positive: Nasal Congestion. negative: Muffled/Hoarse voice, Pharyngeal Erythema, Tonsillar Exudate, Tonsillar Erythema, Rhinorrhea, Sinus Tenderness Respiratory/Chest: positive: Lungs Clear, Normal Breath Sounds. negative: Respiratory Distress Cardiovascular: positive: Regular Rhythm, Regular Rate, S1, S2. negative: Murmur Integumentary: positive: Normal Color Neurologic: positive: Alert Medical Decision Making - Medical Decision Making 59 y/o F with hx of asthma, GERD, ?COPD presents with dry cough, congestion, rhinorrhea x 6 days. Initially was taking Benadryl as she thought it was allergies but stopped it when she noted it was no longer helping. Then started taking Nyquil and duoneb x1 but still was not helping so came to ED. Denies fever, body aches, ear pain, throat pain, sob, cp, abd pain, vomiting, recent travel. +sick family members. Former smoker (quit 2012, smoked since age of 18, around 8 cigs/day) Likely viral URI Plan: Saline neb, reassess 10/25/19 13:02 Given sudafed as well for congestion Feels some improvement stable for dc 10/25/19 14:09 Discharge - Discharge Information Problems reviewed: Yes Clinical Impression/Diagnosis: Viral URI Condition: Stable Disposition: HOME - Admission No - Additional Discharge Information Prescriptions: Fluticasone Prop 0.05% Nasal [Flonase -] 1 - 2 spray NS BID #1 spray.pump Pseudoephedrine HCl [Sudafed] 60 mg PO Q6H #12 tablet Prescription Drug Monitoring Program (I-STOP) results: I-STOP not reviewed - Follow up/Referral - Patient Discharge Instructions Patient Printed Discharge Instructions: DI for Viral Upper Respiratory Infection -- Adult Additional Instructions: Thank you for choosing [facility]. It was a pleasure taking care of you. Use nasal spray as indicated Also used sudafed as needed for congestion. This medication may increase your blood pressure Use Nedipot (available over the counter) to help with congestion Humidifier will help at night Follow-up with your doctor in 2 days Return to the Emergency Department if your symptoms worsen or persist or other concerning symptoms. - Post Discharge Activity
[2019-10-25] MEDS ORDERED: PSEUDOEPHEDRINE HCL 60 MG TABLET PO ONE (13:16)
[2019-10-25] MEDS ORDERED: PSEUDOEPHEDRINE HCL 60 MG TABLET ONE (13:26)
== END 2019-10-25 14:23 | disposition home or self-care (01) ==
LOC: JERFT 12:13
PROC: 3E0F7GC Introduction of Other Therapeutic Substance into Respiratory Tract, Via Natural or Artificial Opening (ICD-10-PCS; principal; 2019-10-25)
DX: J06.9 Acute upper respiratory infection, unspecified (principal); B97.89 Other viral agents as the cause of diseases classified elsewhere; Z87.891 Personal history of nicotine dependence; Z87.19 Personal history of other diseases of the digestive system; Z87.09 Personal history of other diseases of the respiratory system
CPT/HCPCS: 99281-25

== ENCOUNTER 2022-12-19 20:11 | Emergency (ER) | payer OTHER ==
[2022-12-19 20:30] VITALS: BP 141/95; PULSE 93; RESP 18; TEMP 98.2; BMI 27.3
[2022-12-19] MEDS ORDERED: ASPIRIN 81 MG CHEWABLE TABLETS PO ONE (20:51)
[2022-12-19] MEDS ORDERED: ASPIRIN 81 MG CHEWABLE TABLETS ONE (21:59)
[2022-12-19 22:08] LABS: BASO % 0.9 % (0-2.0); EOS % 1.5 % (0-4.5); HEMATOCRIT 37.7 % (32.4-45.2); HEMOGLOBIN 12.9 GM/dL (10.7-15.3); LYMPH % 27.5 % (8-40); MCH 32.8 pg (25.7-33.7); MCHC 34.1 g/dl (32.0-36.0); MEAN CELL VOLUME 96.1 fl (80-96); MEAN PLT VOLUME 7.5 fl (7.5-11.1); MONO % 6.6 % (3.8-10.2); NEUT % 63.5 % (42.8-82.8); PLATELET COUNT 351 10^3/uL (134-434); RBC 3.93 M/mm3 (3.60-5.2); RDW 13.9 % (11.6-15.6); WHITE BLOOD COUNT 9.8 K/mm3 (4.0-10.0)
[2022-12-19 22:13] LABS: INR 0.99 (0.83-1.09); PROTHROMBIN TIME (PATIENT) 11.5 SEC (9.7-13.0)
[2022-12-19 22:16] LABS: ACTIVATED PTT 29.6 SECONDS (25.2-36.5)
[2022-12-19 22:29] LABS: CHLORIDE 107 mmol/L (98-107); SODIUM 140 mmol/L (136-145)
[2022-12-19 22:32] LABS: ALBUMIN 3.6 g/dl (3.4-5.0); ANION GAP 6 MMOL/L (8-16); CO2 27 mmol/L (21-32); GLUCOSE,RANDOM 105 mg/dL (74-106); LIPASE 167 U/L (73-393)
[2022-12-19 22:34] LABS: CREATININE 0.6 mg/dL (0.55-1.3)
[2022-12-19 22:35] LABS: SGOT/AST 32 U/L (15-37); SGPT/ALT 25 U/L (13-61)
[2022-12-19 22:36] LABS: BILIRUBIN,TOTAL 0.6 mg/dL (0.2-1); TOT PROT 7.4 g/dl (6.4-8.2)
[2022-12-19 22:37] LABS: ALK PHOS 97 U/L (45-117)
== END 2022-12-19 23:38 | disposition home or self-care (01) ==
LOC: JER 20:11
DX: R07.9 Chest pain, unspecified (principal)
CPT/HCPCS: 0241U-QW; 36415; 71046-TC-FY; 80053; 83690; 83735; 84484; 85025; 85610; 85730; 93005; 93010; 99285-25